=== PATIENT | female | born 1955 | race Caucasian/White ===

== ENCOUNTER 2019-01-09 10:24 | Inpatient (IN) | payer OTHER, MEDICAID ==
[2019-01-09] MEDS ORDERED: Insulin REGULAR(*) 1 UNITS UNIT SUBCUT ONE (10:40)
[2019-01-09] MEDS ORDERED: Ticagrelor* 90 MG TAB PO ONE (10:50)
[2019-01-09] MEDS ORDERED: Nitroglycerin TAB 0.4 MG* 0.4 MG TAB SL PRN (11:41)
[2019-01-09] MEDS ORDERED: Atorvastatin* 80 MG TAB PO SCH (11:44)
[2019-01-09] MEDS ORDERED: NS 0.9% 1000 ML** 400 ML IV SCH (11:45)
[2019-01-09] MEDS ORDERED: Nitroglycerin 0.4 MG/HR PATCH* (10 MG) TRANSDERM SCH (11:49)
[2019-01-09] MEDS ORDERED: Metoprolol Tartrate TAB* 25 MG PO SCH (12:00)
[2019-01-09] MEDS ORDERED: Enoxaparin(*) 60 MG/0.6 ML SYR SUBCUT SCH (12:00)
[2019-01-09 12:47] LABS: CKMB ng/mL 123.4 ng/mL (0.6-6.3)
[2019-01-09 12:58] LABS: HDL Cholesterol 46.2 mg/dL; Troponin I 11.03 ng/mL (<0.04)
[2019-01-09] MEDS ORDERED: Insulin LISPRO* 1 UNITS UNIT SUBCUT SCH (13:02)
[2019-01-09] MEDS ORDERED: Dextrose 50% Syringe 50 ML* 25 GM/50 ML SYRINGE IV PUSH PRN (13:04)
[2019-01-09] MEDS ORDERED: Insulin LISPRO* 1 UNITS UNIT SUBCUT ONE ×2 (15:01→15:06)
[2019-01-09 15:21] VITALS: BP 115/68
[2019-01-09] MEDS ORDERED: Nitro Patch/OINT Remove PATCH OFF SCH (21:00)
--- NOTE | 2019-01-09 22:26 | CATH ---
CC: Dr. Rodriguez"; Dr. Timbo Butler * CATH REPORT: DATE OF PROCEDURE: 01/09/19 - ROOM #ICU-08 She is being transferred today to [place] for bypass. PROCEDURES: Right radial artery access, bilateral selective coronary cineangiography, left heart catheterization, left ventriculography. HISTORY: A 63-year-old diabetic, hypertensive, hyperlipidemic patient transferred from [place] with acute anterior wall ST elevation infarct. After sublingual nitro, IV heparin, and aspirin, she became pain-free en route. [facility] was [facility] directly [facility]. PROCEDURE ACCESS: Right radial artery, sheath 6F slender. MEDICATIONS: 1. Subcu lidocaine. 2. IV Versed. 3. IV fentanyl. 4. Heparin 3000 units. 5. Verapamil 3 mg. 6. Nitroglycerin 300 mcg IA. 7. Brilinta 180 mg p.o. loading dose. DIAGNOSTIC CATHETERS: 5F TIG4, 5F pigtail. HEMODYNAMICS: Initial AO 102/68. LV post angiography 113/4-12, no aortic valve gradient on pullback. ANGIOGRAPHY: Left main: The left main is relatively short, has no stenosis. LAD: The LAD is moderate, has mild proximal luminal irregularity, then has a tubular up to 80% stenosis with distal LORAINE 3 flow, the lesion straddle is a moderate size large distribution diagonal, which has more distal 40% to 50% stenosis. The bifurcation is a Benjamin 101. The mid LAD has 2 areas of moderate stenosis, the LAD and the apex. Circumflex: The circumflex is large, not dominant, has a long tubular 60% to 70 % stenosis straddling the first marginal branch, this is followed by large posterolateral. RCA: The RCA is a moderate, dominant with a long tubular proximal 75% stenosis , the PDA is small to moderate, is followed by several posterolaterals, distal RCA has no significant stenosis. There are faint right to left transseptal collaterals. LV gram: She has anteroapical akinesis with localized apical dyskinesis, calculated LVEF of 56% in part due to hyperdynamic contractility of the anterior base and proximal inferior wall. CONCLUSION: 1. Three-vessel disease in a diabetic with fairly extensive diffuse disease including branch points. She reperfused with medical therapy, has no residual pain with preserved flow. She will be transferred for bypass grafting. 2. Of note, the patient did receive Brilinta as part of her procedure. 3. Successful right radial artery access. 4. LV systolic dysfunction as above. [id number]/[facility] #: [id number] SILVIA
--- NOTE | 2019-01-09 22:42 | TRS ---
CC: Dr. Faria in [place]; Dr. Butler; Dr. Mckeon at [facility] * HISTORY AND PHYSICAL AND TRANSFER SUMMARY: DATE OF ADMISSION: 01/09/19 DATE OF TRANSFER: 01/09/19 PRIMARY CARE PHYSICIAN: Dr. Faria in [place]. HISTORY OF PRESENT ILLNESS: A 63-year-old diabetic presenting in transfer from [place] with acute anterior wall ST-elevation infarct. In retrospect, she had an episode of chest pain about a month ago, was apparently evaluated at [place], we do not have details. This morning at around 9 o'clock, she developed severe chest pain, presented to the ER at [place] where EKG showed injury current in the mid precordial leads. She was treated with aspirin, sublingual nitroglycerin, and IV heparin. She was transferred to our institution. En route, her chest pain resolved. At arrival here, she was pain-free with less ST- elevation on the monitor. She was brought directly to the [facility] as an ER bypass. She denies any history of heart failure symptoms, palpitations, or syncope. She is a diabetic; according to her , takes her diabetic medications intermittently. We do not have an A1c. She has no known history of hyperlipidemia. She is normally active, has not noticed any recent change in exercise tolerance. PAST MEDICAL HISTORY: 1. Diabetes, type 2. 2. Hypertension. 3. Hyperlipidemia without recent lipid profile. 4. Asthma. 5. Bipolar disorder with anxiety. MEDICATIONS: Prehospital medications not yet detailed in the MAR. ALLERGIES: SULFA. FAMILY HISTORY: Negative for premature coronary artery disease. SOCIAL HISTORY: She is a nonsmoker. She is . REVIEW OF SYSTEMS: General: No weight loss. No fever. 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 GI: No history of peptic ulcer disease or bleeding. Heme: No history of malignancy or anemia. Circulatory: No claudication. Remainder all negative. PHYSICAL EXAMINATION: VITAL SIGNS: First at [facility], approximately 100/60. Heart rate in the 80s. Rare ectopy. HEENT: Unremarkable without xanthelasma, scleral injection, or jaundice. EOMs normal. LUNGS: Her lungs were clear to auscultation and percussion. JVP was not elevated. Carotids were palpable bilaterally without bruits. CARDIAC: [place] and RV not palpable, normal heart sounds. No audible gallop, murmur, or rub. Rhythm regular. ABDOMEN: Soft, nontender. No bruits. Liver not palpable. No tenderness. No masses. EXTREMITIES: Femoral pulses 2+. No bruits. Radial pulses 2+. Pedal pulses 2+ . No cyanosis, clubbing, or edema. NEUROLOGIC: Cranial nerves grossly intact. SKIN: Warm and perfused. PSYCH: She is oriented and appropriate, appropriately anxious. DIAGNOSTIC STUDIES/LABORATORY DATA: Labs from [place] included normal CBC, BMP with normal creatinine, with blood sugar in the 400s. EKG showed anterior ST elevation. IMPRESSION: Anterior wall ST-elevation infarct. She underwent emergent catheterization via the radial approach. TRANSFER SUMMARY DISCHARGE DIAGNOSIS: 1. Anterior wall ST elevation infarct with 3-vessel coronary disease and impaired left ventricular systolic function. 2. Diabetes, type 2. 3. Hypertension. 4. Hyperlipidemia. 5. History of asthma. 6. Bipolar disorder. TRANSFER MEDICATIONS: She received a loading dose of Brilinta 180 mg. Aspirin 81 mg daily, Lopressor 25 q.6, Lipitor 80 mg daily, subcu Lovenox 60 mg q.12, nitro patch 0.4 mg per hour. CONDITION ON TRANSFER: Stable. DISPOSITION: She is being transferred to Dr. Mckeon, Cardiac Surgery at [facility]. HOSPITAL COURSE: She presented with an acute anterior wall ST-elevation infarct in [place], by arrival here was pain-free with improved ST elevation. Diagnostic cath reveals a culprit 80% LAD stenosis with LORAINE 3 flow which was not intervened upon given her lack of pain, with hemodynamic stability, and LORAINE 3 flow. The patient also has 3-vessel disease with significant stenoses in the circumflex and RCA. The LAD lesions travels a moderate sized diagonal with a large distribution, it is a complex Benjamin 101 lesion. Given her diabetes as well as 3-vessel disease, she will be referred for bypass grafting. She was accepted by Dr. Mckeon at [place]. Her other labs here include a total CPK of 986 with MB of 123.4 with troponin of 11.03, which may be due to early washout. Her cholesterol was high at 240 with triglycerides 128, LDL high at 168, HDL 46.2, on no therapy. She is pending transfer once a bed is available, is hemodynamically stable, her radial artery site is stable. She is pain free. [id number]/[facility] #: [id number] MTDD
[2019-01-10] MEDS ORDERED: Aspirin 81 mg CHEW TAB* 81 MG TAB.CHEW PO SCH (09:00)
== END 2019-01-09 15:15 | disposition short-term general hospital (02) | DRG 282 ==
LOC: CHICATH 10:24 → ICU 11:43
PROVIDERS: ADMIT Internal Medicine Cardiovascular Disease; ATTEND Internal Medicine Cardiovascular Disease
PROC: B211YZZ Fluoroscopy of Multiple Coronary Arteries using Other Contrast (ICD-10-PCS; 2019-01-09)
PROC: B215YZZ Fluoroscopy of Left Heart using Other Contrast (ICD-10-PCS; 2019-01-09)
PROC: 4A023N7 Measurement of Cardiac Sampling and Pressure, Left Heart, Percutaneous Approach (ICD-10-PCS; principal; 2019-01-09 10:00)
DX: I21.09 ST elevation (STEMI) myocardial infarction involving other coronary artery of anterior wall (principal); E11.9 Type 2 diabetes mellitus without complications; I25.10 Atherosclerotic heart disease of native coronary artery without angina pectoris; I10 Essential (primary) hypertension; E78.5 Hyperlipidemia, unspecified; J45.909 Unspecified asthma, uncomplicated; F31.9 Bipolar disorder, unspecified; F41.9 Anxiety disorder, unspecified; Z88.2 Allergy status to sulfonamides
CPT/HCPCS: 36415; 80061; 82550; 82553; 82947; 84484; 85347; 87641; 93005; 99156; 99157; A9270-GY; J1650